=== PATIENT | male | born 1995 | race African-American/Black ===

== ENCOUNTER 2018-11-16 22:46 | Emergency (ER) | payer SELFPAY ==
[~2018-11-16] VITALS: Ht 175.3 cm; Wt 79.4 kg
[2018-11-16 23:05] VITALS: BP 148/98
--- NOTE | 2018-11-16 23:08 | NUR ---
ED Nurse Note: PT CAME FROM HOME C/O GENERALIZED ABD PAIN X1 DAY ACCOMPANIED BY N/V/D. PER HE WAS GIVEN IMODIUM AND TYLENOL. DID NOT ALLEVIATE PAIN
[2018-11-16] MEDS ORDERED: Ketorolac 30mg Inj IV ONE (23:30)
[2018-11-16] MEDS ORDERED: Mylanta II UD 30ml ORAL ONE (23:30)
[2018-11-16] MEDS ORDERED: Dicyclomine HCl 10mg/5ml oral soln ORAL ONE (23:30)
[2018-11-16] MEDS ORDERED: Lidocaine 2% Visc 15ml soln ORAL ONE (23:30)
[2018-11-16 23:42] LABS: BASOPHILS % (AUTO) 0.9 % (0.0-2.0); HEMATOCRIT 55.3 % (42.0-52.0); LYMPHOCYTES % (AUTO) 23.7 % (20.0-45.0); MEAN CORPUSCULAR VOLUME 86 FL (80-99); MONOCYTES % (AUTO) 5.4 % (1.0-10.0); PLATELET COUNT 211 K/UL (150-450); RED CELL DISTRIBUTION WIDTH 11.1 % (11.6-14.8); WHITE BLOOD COUNT 6.5 K/UL (4.8-10.8)
[2018-11-16 23:43] LABS: HEMOGLOBIN 19.2 G/DL (14.2-18.0)
[2018-11-16 23:52] LABS: ANION GAP 6 mmol/L (5-15); BLOOD UREA NITROGEN 9 mg/dL (7-18); CALCIUM 9.3 MG/DL (8.5-10.1); CARBON DIOXIDE 32 MMOL/L (21-32); CHLORIDE 100 MMOL/L (98-107); CREATININE 1.2 MG/DL (0.55-1.30); POTASSIUM 3.3 MMOL/L (3.5-5.1); SODIUM 138 MMOL/L (136-145)
[2018-11-16 23:56] LABS: ALANINE AMINOTRANSFERASE 25 U/L (12-78); ALBUMIN 4.3 G/DL (3.4-5.0); ALBUMIN/GLOBULIN RATIO 1.2 (1.0-2.7); ALKALINE PHOSPHATASE 119 U/L (46-116); ASPARTATE AMINO TRANSFERASE 23 U/L (15-37); BILIRUBIN,TOTAL 0.4 MG/DL (0.2-1.0)
[2018-11-17] MEDS ORDERED: RANITIDINE HCL150 MG ORAL (00:15)
[2018-11-17] MEDS ORDERED: DICYCLOMINE HCL10 MG PO (00:15)
[2018-11-17] MEDS ORDERED: ONDANSETRON ODT4 MG BC (00:15)
[2018-11-17 00:30] VITALS: BP 148/98
--- NOTE | 2018-11-17 00:30 | NUR ---
ER DISCHARGE NOTE: Patient is cleared to be discharged per ERMD, pt is aox4, on room air, with stable vital signs. ACCOMPANIED BY FAMILY MEMBER. pt was given dc and prescription instructions, pt was able to verbalize understanding, pt id band and iv site removed without complications. pt is able to ambulate with steady gait. pt took all belongings.
--- NOTE | 2018-11-17 03:26 | Emergency Room Report ---
History of Present Illness General Chief Complaint: Abdominal Pain Source: Patient Present Illness HPI 23-year-old male presents ED for evaluation. Patient complaining of abdominal pain with vomiting and diarrhea 1 day. Pain is cramping, 8 out of 10, nonradiating. Notes multiple episodes of watery diarrhea. Denies fevers or chills. Denies recent travel or recent antibiotic use. No other aggravating relieving factors. Denies any other associated symptoms Allergies: Coded Allergies: No Known Allergies (Unverified , 11/16/18) Patient History Past Medical History: none Past Surgical History: none Pertinent Family History: none Social History: Denies: smoking, alcohol use, drug use Immunizations: UTD Reviewed Nursing Documentation: PMH: Agreed; PSxH: Agreed Nursing Documentation-PMH Past Medical History: No Stated History Review of Systems All Other Systems: negative except mentioned in HPI Physical Exam Vital Signs Date Time Temp Pulse Resp B/P (MAP) Pulse Ox O2 Delivery O2 Flow Rate FiO2 11/16/18 22:56 98.4 81 14 148/98 96 Room Air Sp02 EP Interpretation: reviewed, normal General Appearance: no apparent distress, alert, GCS 15, non-toxic Head: normocephalic, atraumatic Eyes: bilateral eye normal inspection, bilateral eye PERRL ENT: hearing grossly normal, normal pharynx, no angioedema, normal voice Neck: full range of motion, supple/symm/no masses Respiratory: chest non-tender, lungs clear, normal breath sounds, speaking full sentences Cardiovascular #1: regular rate, rhythm, no edema Cardiovascular #2: 2+ carotid (R), 2+ carotid (L), 2+ radial (R), 2+ radial (L) , 2+ dorsalis pedis (R), 2+ dorsalis pedis (L) Gastrointestinal: normal bowel sounds, non tender, soft, non-distended, no guarding, no rebound Rectal: deferred Genitourinary: normal inspection, no CVA tenderness Musculoskeletal: back normal, gait/station normal, normal range of motion, non- tender Neurologic: alert, oriented x3, responsive, motor strength/tone normal, sensory intact, speech normal Psychiatric: judgement/insight normal, memory normal, mood/affect normal, no suicidal/homicidal ideation Reflexes: 3+ bicep (R), 3+ bicep (L), 3+ tricep (R), 3+ tricep (L), 3+ knee (R) , 3+ knee (L) Skin: normal color, no rash, warm/dry, well hydrated Lymphatic: no adenopathy Medical Decision Making Diagnostic Impression: Primary Impression: Gastroenteritis ER Course Hospital Course 23-year-old M presents to ED with cramping abdominal pain with vomiting, diarrhea differential diagnosis: gastritis, SBO, cholecystits, gastroenteritis Clinical course Patient placed on stretcher. On cardiac cath lab radiology technologist. After initial history and physical I ordered labs, IV fluids, Zofran, GI cocktail, toradol, pepcid Labs - no leukocytosis, electrolytes ok, LFTs normal Upon reassessment, patient states pain has improved. findings consistent with gastroenteritis Discussed findings with patient. Course self-limited. Safe for discharge. Patient follow up. Does not have a PMD. We'll provide referrals I feel this is a highly complex case requiring extensive working including EKG/ Rhythm strip, Xray/CT/US, Blood/urine lab work, repeat exams while in ED, and administration of strong opiates/narcotics for pain control, admission to hospital or close patient follow up. Diagnosis - gastroenteritis Stable and discharged to home with prescriptions for Zantac, zofran, bentyl. Followup with PMD. Return to ED if symptoms recur or worsen Labs Test 11/16/18 23:20 White Blood Count 6.5 K/UL (4.8-10.8) Red Blood Count 6.40 M/UL (4.70-6.10) Hemoglobin 19.2 G/DL (14.2-18.0) Hematocrit 55.3 % (42.0-52.0) Mean Corpuscular Volume 86 FL (80-99) Mean Corpuscular Hemoglobin 30.0 PG (27.0-31.0) Mean Corpuscular Hemoglobin Concent 34.7 G/DL (32.0-36.0) Red Cell Distribution Width 11.1 % (11.6-14.8) Platelet Count 211 K/UL (150-450) Mean Platelet Volume 8.0 FL (6.5-10.1) Neutrophils (%) (Auto) 69.0 % (45.0-75.0) Lymphocytes (%) (Auto) 23.7 % (20.0-45.0) Monocytes (%) (Auto) 5.4 % (1.0-10.0) Eosinophils (%) (Auto) 1.0 % (0.0-3.0) Basophils (%) (Auto) 0.9 % (0.0-2.0) Sodium Level 138 MMOL/L (136-145) Potassium Level 3.3 MMOL/L (3.5-5.1) Chloride Level 100 MMOL/L (98-107) Carbon Dioxide Level 32 MMOL/L (21-32) Anion Gap 6 mmol/L (5-15) Blood Urea Nitrogen 9 mg/dL (7-18) Creatinine 1.2 MG/DL (0.55-1.30) Estimat Glomerular Filtration Rate > 60 mL/min (>60) Glucose Level 97 MG/DL (74-106) Calcium Level 9.3 MG/DL (8.5-10.1) Total Bilirubin 0.4 MG/DL (0.2-1.0) Aspartate Amino Transf (AST/SGOT) 23 U/L (15-37) Alanine Aminotransferase (ALT/SGPT) 25 U/L (12-78) Alkaline Phosphatase 119 U/L (46-116) Total Protein 8.0 G/DL (6.4-8.2) Albumin 4.3 G/DL (3.4-5.0) Globulin 3.7 g/dL Albumin/Globulin Ratio 1.2 (1.0-2.7) Lipase 71 U/L (73-393) Last Vital Signs Date Time Temp Pulse Resp B/P (MAP) Pulse Ox O2 Delivery O2 Flow Rate FiO2 11/17/18 00:30 98.4 81 14 148/98 96 Room Air Status: improved Disposition: HOME, SELF-CARE Condition: Stable Scripts Dicyclomine Hcl* (DICYCLOMINE HCL*) 10 Mg Capsule 10 MG PO QID, #20 CAP Prov: Delon Valencia MD 11/17/18 Ranitidine Hcl* (ZANTAC*) 150 Mg Tablet 150 MG ORAL TWICE A DAY, #30 TAB Prov: Delon Valencia MD 11/17/18 Ondansetron Odt* (ZOFRAN ODT*) 4 Mg Tab.rapdis 4 MG BC EVERY 6 HOURS PRN for Nausea & Vomiting, #20 TAB 0 Refills Prov: Delon Valencia MD 11/17/18 Referrals: Kori Baxter [facility] Patient Instructions: Viral Gastroenteritis, Adult, [id number] Delon Valencia MD Nov 17, 2018 03:26
== END 2018-11-17 01:00 | disposition home or self-care (01) ==
LOC: EMR 11-17 00:51
DX: K52.9 Noninfective gastroenteritis and colitis, unspecified (principal)
CPT/HCPCS: 36415; 80053; 83690; 85025; 96361; 96374; 96375; 99284; J1885; J2405; S0028

== ENCOUNTER 2019-01-07 11:27 | Emergency (ER) | payer SELFPAY ==
[~2019-01-07] VITALS: Ht 180.3 cm; Wt 72.6 kg
[~2019-01-07 11:27] MED LIST: DICYCLOMINE HCL10 MG PO; ONDANSETRON ODT4 MG BC; RANITIDINE HCL150 MG ORAL
[2019-01-07] MEDS ORDERED: NKM (11:40)
[2019-01-07] MEDS ORDERED: Ketorolac 60mg Inj IM ONE (12:00)
--- NOTE | 2019-01-07 12:28 | NUR ---
ED Nurse Note: pt walked in with crutches due to left ankle pain and left chest pain secondary to mechanical fall happend yesterady morning.AMANDA wolfe done pt medicated awaiting imaging.
[2019-01-07] MEDS ORDERED: IBUPROFEN600 MG ORAL (14:24)
[2019-01-07] MEDS ORDERED: NORCO 5-325 TA1 EACH ORAL (14:24)
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
--- NOTE | 2019-01-07 15:06 | Diagnostic Imaging Report ---
Indication: Pain, trauma Technique: 3 views left foot Comparison: none Findings: No acute fractures. No dislocations. Joint spaces are preserved. Impression: Negative
[2019-01-07 15:07] VITALS: BP 125/84
--- NOTE | 2019-01-07 15:10 | NUR ---
ED Nurse Note: ermd re-eval done . Pt cleared by health care Provider for discharge. DC instructions/prescription was given and explained to pt and verbalized understanding of teachings. All medical deviecs such as ID band removed. Pt is AAO x4, ambulatory and left with all personal belongings.
--- NOTE | 2019-01-07 20:35 | Emergency Room Report ---
History of Present Illness General Chief Complaint: Lower Extremity Injury Source: Patient Present Illness HPI Patient is a 23-year-old male presented after increased left-sided sharp chest pain as well as left-sided ankle pain and foot swelling. Patient had a recent fall reportedly downstairs. He states injury occurred approximately 2 days prior to arrival. Patient denies any fever. He reports of increased difficulty with ambulation. Pain had worsened over time. He denies any severe headache or neck discomfort. He denies any numbness or weakness to his extremities. He denies any abdominal pain. Pain is worse with deep breath.Patient also reports having increased pain with ambulation. Allergies: Coded Allergies: No Known Allergies (Unverified , 11/16/18) Patient History Past Medical History: see triage record Reviewed Nursing Documentation: PMH: Agreed; PSxH: Agreed Nursing Documentation-PMH Past Medical History: No Stated History Review of Systems All Other Systems: negative except mentioned in HPI Physical Exam Vital Signs Date Time Temp Pulse Resp B/P (MAP) Pulse Ox O2 Delivery O2 Flow Rate FiO2 01/07/19 11:37 98.1 94 16 130/84 (99) 95 Room Air General Appearance: well appearing, no apparent distress, alert, GCS 15 Head: normocephalic, atraumatic ENT: hearing grossly normal, normal voice Neck: full range of motion, supple Respiratory: no respiratory distress, speaking full sentences Cardiovascular #1: normal inspection, edema - left foot and ankle edema Musculoskeletal: no calf tenderness Neurologic: normal gait Psychiatric: mood/affect normal Skin: no rash Medical Decision Making Diagnostic Impression: Primary Impression: Chest wall contusion Additional Impressions: Foot fracture, left Ankle sprain ER Course Patient presented for chest and ankle pain after trauma. Differential diagnosis include was not limited to fracture, dislocation, rib fracture, pneumothorax among others. Because of complexity of patient's case imaging studies were ordered. CT imaging of the chest read by radiology showed no evidence of acute fracture or hemothorax. Foot x-ray 3 views read by radiology showed no evident fracture with some soft tissue swelling. Patient was noted to have significant swelling to his foot. He was placed in a posterior splint. Patient may have some occult fracture not imaged at this time. Patient was given IM Toradol for pain. He was given crutches. He is advised to follow-up with his primary care physician for recheck. He is given a note for work due to chest discomfort as well as difficulty with ambulation.Patient was advised of x-ray findings and advised to have his foot and ankle rechecked with his primary care physician and that he may need further imaging of pain persist. Last Vital Signs Date Time Temp Pulse Resp B/P (MAP) Pulse Ox O2 Delivery O2 Flow Rate FiO2 01/07/19 15:07 98.1 17 125/84 96 Room Air 01/07/19 11:37 94 Status: improved Disposition: HOME, SELF-CARE Condition: Stable Scripts Ibuprofen* (MOTRIN*) 600 Mg Tablet 600 MG ORAL Q8H PRN for For Pain, #20 TAB 0 Refills Prov: Fred Coyle MD 01/07/19 Hydrocodone Bit/Acetaminophen 5-325* (NORCO 5-325*) 1 Each Tablet 1 TAB ORAL Q6H PRN for For Pain, #20 TAB 0 Refills Prov: Fred Coyle MD 01/07/19 Patient Instructions: Chest Contusion Fred Coyle MD Jan 07, 2019 20:35
== END 2019-01-07 15:11 | disposition home or self-care (01) ==
LOC: EMR 12:02
DX: S20.219A Contusion of unspecified front wall of thorax, initial encounter (principal); S92.902A Unspecified fracture of left foot, initial encounter for closed fracture; K76.89 Other specified diseases of liver; W19.XXXA Unspecified fall, initial encounter; Y92.9 Unspecified place or not applicable
CPT/HCPCS: 29515; 71250; 96372; 99283

== ENCOUNTER 2019-01-11 22:07 | Emergency (ER) | payer SELFPAY ==
[~2019-01-11] VITALS: Ht 177.8 cm; Wt 68.0 kg
[~2019-01-11 22:07] MED LIST changes: +IBUPROFEN600 MG ORAL; +NKM; +NORCO 5-325 TA1 EACH ORAL
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
--- NOTE | 2019-01-11 23:06 | Emergency Room Report ---
History of Present Illness General Chief Complaint: Lower Extremity Injury Source: Patient Present Illness HPI Is a 23-year-old male with no past medical history. He presents with chief complaint of recheck on his left foot injury. He was seen here 4 days ago. He slipped and fell and twisted his foot and ankle. X-rays show possible fracture. Patient was splinted and given crutches. Since then he is been walking on the splint. Is wet and dirty. He came in for recheck. He denies any other trauma. Said he is feeling better. Allergies: Coded Allergies: No Known Allergies (Unverified , 11/16/18) Patient History Past Medical History: see triage record, old chart reviewed Past Surgical History: none Pertinent Family History: none Social History: Denies: smoking Immunizations: other Reviewed Nursing Documentation: PMH: Agreed; PSxH: Agreed Nursing Documentation-PMH Past Medical History: No Stated History Review of Systems Eye: Denies: eye pain, blurred vision ENT: Denies: ear pain, nose congestion, throat swelling Respiratory: Denies: cough, shortness of breath Cardiovascular: Denies: chest pain, palpitations Gastrointestinal: Denies: abdominal pain, diarrhea, nausea, vomiting Musculoskeletal: Reports: joint pain; Denies: back pain Skin: Denies: rash Neurological: Denies: headache, numbness Endocrine: Denies: increased thirst, increased urine Hematologic/Lymphatic: Denies: easy bruising All Other Systems: negative except mentioned in HPI Physical Exam Vital Signs Date Time Temp Pulse Resp B/P (MAP) Pulse Ox O2 Delivery O2 Flow Rate FiO2 01/11/19 22:10 98.2 94 16 129/84 (99) 94 Room Air Vitals normal Sp02 EP Interpretation: reviewed, normal General Appearance: well appearing, no apparent distress, alert Head: normocephalic, atraumatic Eyes: bilateral eye PERRL, bilateral eye EOMI ENT: hearing grossly normal, normal pharynx Neck: full range of motion, supple, no meningismus Respiratory: chest non-tender, lungs clear, normal breath sounds Cardiovascular #1: regular rate, rhythm, no murmur Gastrointestinal: normal bowel sounds, non tender, no mass, no organomegaly, no bruit, non-distended Musculoskeletal: back normal, gait/station normal, normal range of motion, other - Left foot: I took down the splint. He has tenderness over the ATFL. Ankle stable. Foot stable. Pulses normal. Psychiatric: mood/affect normal Skin: warm/dry Procedures Splinting Splinting : Consent: Verbal Location: left Foot Pre-Made Type: JOHN wrap Pre-Proc Neuro Vasc Exam: normal Post-Proc Neuro Vasc Exam: normal Patient Tolerated: Well Complications: None Medical Decision Making Diagnostic Impression: Primary Impression: Ankle sprain Qualified Codes: S93.492D - Sprain of other ligament of left ankle, subsequent encounter ER Course Patient with a foot sprain reevaluation. No fracture dislocation. I DC the splint and put him on John wrap and crutches. Other X-Ray Diagnostic Results Other X-Ray Diagnostic Results : X-Ray ordered: Left foot x-rays # of Views/Limited Vs Complete: 3 View Indication: Pain EP Interpretation: Yes Interpretation: no dislocation, no soft tissue swelling, no fractures Impression: No acute disease Electronically Signed by: Champ Silverman MD Last Vital Signs Date Time Temp Pulse Resp B/P (MAP) Pulse Ox O2 Delivery O2 Flow Rate FiO2 01/11/19 22:10 98.2 94 16 129/84 (99) 94 Room Air Status: improved Disposition: HOME, SELF-CARE Condition: Stable Patient Instructions: Ankle Sprain Additional Instructions: Follow-up with your doctor in 7 days. Weightbearing as tolerated. Return if worse. Champ Silverman MD Jan 11, 2019 23:06
[2019-01-11 23:11] VITALS: BP 127/82
--- NOTE | 2019-01-11 23:11 | NUR ---
ER DISCHARGE NOTE: Patient is cleared to be discharged per Dr. Silverman. Pt is aox4 on room air with stable vital signs. Pt was given dc and prescription instructions and was able to verbalize understanding. Pt's ID band removed. Pt is able to ambulate with steady gait and took all belongings.
--- NOTE | 2019-01-12 12:33 | Diagnostic Imaging Report ---
Indication: Foot pain Comparison: None Findings: 3 views of the left foot were obtained. No acute fractures, malalignment, erosions or periostitis are identified. Soft tissues are unremarkable. Impression: No acute findings
== END 2019-01-11 23:11 | disposition home or self-care (01) ==
LOC: EMR 22:46
DX: S93.492D Sprain of other ligament of left ankle, subsequent encounter (principal); W01.0XXD Fall on same level from slipping, tripping and stumbling without subsequent striking against object, subsequent encounter
CPT/HCPCS: 99283